=== PATIENT | female | born 1990 | race Caucasian/White ===

== ENCOUNTER 2019-12-12 10:56 | Observation (INO) | payer BC, SELFPAY ==
[2019-12-12 11:20] VITALS: TEMP 37.6; BMI 30.4
[2019-12-12 11:23] VITALS: BP 112/66; PULSE 81
[2019-12-12 12:01] VITALS: BP 104/63; PULSE 77
[2019-12-12] MEDS: FAMOTIDINE 20 MG TABLET PO (12:42)
[2019-12-12 12:45] VITALS: TEMP 37.6
[2019-12-12 13:01] VITALS: BP 104/64; PULSE 79
--- NOTE | 2019-12-12 13:56 | OBADM ---
This patient, Claribel Park, admitted to the OB room OB Post 117 for observation. Patient/family oriented to hospital policies and general routines including ID bracelet, bed and alarms, visiting hours, pain management, procedures, bathroom and other care routines, personal items, smoking policy, room service/diet, and visiting hours. Patient/Family are encouraged to report perceived risks to care and to ask questions if they do not understand what they are told or what they should do.
--- NOTE | 2020-01-05 17:50 | PM.OBTRLD ---
OB - Triage/Final Diagnosis Final Diagnosis (1) Nausea: Code(s): R11.0 - Nausea Status: Acute
== END 2019-12-12 12:52 | disposition home or self-care (01) ==
PROVIDERS: Admitting Provider Obstetrics & Gynecology; PCP Nurse Practitioner Family; Visit Provider Obstetrics & Gynecology
DX: O26.893 Other specified pregnancy related conditions, third trimester (principal); R11.0 Nausea; Z3A.28 28 weeks gestation of pregnancy
CPT/HCPCS: A9270; G0378; G0379

== ENCOUNTER 2019-12-27 08:27 | Observation (INO) | payer BC, SELFPAY ==
[2019-12-27] VITALS (7 sets, daily range): BP systolic 107–115; BP diastolic 60–67; PULSE 83–90; BMI 30.4
[2019-12-27 08:58] LABS: Add Urine Microscopic? NO; Appearance Urine Clear (Clear); Bilirubin Urine Negative (Negative); Blood Urine Negative (Negative); Color Urine Yellow (Yellow); Glucose Urine UA Negative (Negative); Ketones Urine Negative (Negative); Leukocyte Esterase Ur Negative LEU/UL (NEGATIVE); Nitrate Urine Negative (Negative); Protein Urine Negative (Negative); Specific Grav Ur 1.016 (1.001-1.035); Urobilinogen Urine Negative mg/dL (<2.0)
--- NOTE | 2019-12-27 10:58 | OBADM ---
This patient, Claribel Park, admitted to the OB room OB Post 116 for observation. Patient/family oriented to hospital policies and general routines including ID bracelet, bed and alarms, visiting hours, pain management, procedures, bathroom and other care routines, personal items, smoking policy, room service/diet, and visiting hours. Patient/Family are encouraged to report perceived risks to care and to ask questions if they do not understand what they are told or what they should do.
--- NOTE | 2020-01-20 17:15 | PM.OBTRLD ---
OB - Triage/Final Diagnosis Visit Information Date of evaluation: 12/27/19 Evaluation Laboratory results: Laboratory Tests 12/27/19 08:49 Urine Color Yellow Urine Appearance Clear Urine pH 6.0 Ur Specific [place] 1.016 Urine Protein Negative Urine Glucose (UA) Negative Urine Ketones Negative Ur Blood (Man) Negative Urine Nitrate Negative Urine Bilirubin Negative Urine Urobilinogen Negative Ur Leukocyte Esterase Negative Final Diagnosis (1) False labor: Code(s): O47.9 - False labor, unspecified Status: Acute
== END 2019-12-27 10:35 | disposition home or self-care (01) ==
PROVIDERS: Admitting Provider Obstetrics & Gynecology; PCP Nurse Practitioner Family; Visit Provider Obstetrics & Gynecology
DX: O47.03 False labor before 37 completed weeks of gestation, third trimester (principal); Z3A.30 30 weeks gestation of pregnancy
CPT/HCPCS: 81003; 87077; 87086; 87088; 87186; G0378; G0379

== ENCOUNTER 2020-02-25 07:36 | Outpatient (CLI) | payer BC, SELFPAY ==
[2020-02-25 08:12] VITALS: BP 108/74; PULSE 81
== END 2020-02-25 08:30 | disposition home or self-care (01) ==
LOC: ANHOBOP 08:21 → ANHLDR 08:45
PROVIDERS: PCP Nurse Practitioner Family; Visit Provider Obstetrics & Gynecology
DX: O42.12 Full-term premature rupture of membranes, onset of labor more than 24 hours following rupture (principal); Z3A.00 Weeks of gestation of pregnancy not specified
CPT/HCPCS: 59025; 84112; 99199

== ENCOUNTER 2020-03-02 11:50 | Outpatient (CLI) | payer BC, SELFPAY ==
[2020-03-02 12:48] LABS: Hematocrit 35.6 % (37.0-47.0); Mean Corpuscular HGB Conc 33.7 g/dl (32-36); Mean Corpuscular Hemoglobin 31.1 pg (26-34); Mean Corpuscular Volume 92.2 fl (80-100); Mean Platelet Volume 12.3 fl (7.4-10.4); Platelet Count Result 122 k/mm3 (150-375); Red Blood Count 3.86 M/mm3 (4.2-5.4); Red Cell Distribution Width 14.2 % (11.5-14.5); White Blood Count 9.4 K/mm3 (4.5-10.0)
[2020-03-03 07:20] LABS: Rapid Plasma Reagin Non-Reactive (NonReactive)
== END 2020-03-02 11:51 | disposition home or self-care (01) ==
PROVIDERS: PCP Nurse Practitioner Family; Visit Provider Obstetrics & Gynecology
DX: Z01.818 Encounter for other preprocedural examination (principal)
CPT/HCPCS: 36415; 85027; 86592; 86850; 86900; 86901

== ENCOUNTER 2020-03-03 05:56 | Inpatient (IN) | payer BC, SELFPAY ==
[2020-03-03] VITALS (52 sets, daily range): BP systolic 97–120; BP diastolic 52–89; PULSE 56–106; RESP 12–18; TEMP 36.4–37.2; O2SAT 96–100; BMI 32.8
--- NOTE | 2020-03-03 05:56 | LDADM ---
This patient, Claribel Park, was admitted to Labor/Delivery/Recovery 120 on 03/03/20 at 05:56. Plans for labor, pain management and were discussed with patient. Patient/family oriented to hospital policies and general routines including ID bracelet, bed and alarms, visiting hours, pain management, procedures, bathroom and other care routines, personal items, smoking policy, room service/diet and guest tray routines, security routines, and visiting hours. Patient/Family are encouraged to report perceived risks to care and to ask questions if they do not understand what they are told or what they should do. See OBIX for further documentation.
[2020-03-03] MEDS: LACTATED RINGERS 1,000 ML 125 ML IV CONT ×3 (06:36→09:01)
--- NOTE | 2020-03-03 06:50 | WPDANESEPPF ---
Anes - Initial Pre Proc Eval Procedure: Operation Date: 03/03/20 07:30 Proposed Procedures p Repeat Section, Bilateral Tubal Ligation - Sujata Jean Baptiste MD Date/Time: 03/03/20 06:50 Surgeon: Sujata Jean Baptiste MD Pre Op Diagnosis: Induction of Labor Patient Data Age: 29 Gender: F Height: 1.73 m Weight: 98 kg Last Vital Signs Pulse 95 03/03/20 06:31 BP 107/79 03/03/20 06:31 Allergies Allergy/AdvReac Type Severity Reaction Status Date / Time No Known Allergies Allergy Unknown Verified 11/11/19 18:25 Home Medications Medication Instructions Recorded Confirmed Type PNV cmb#95-ferrous fumarate-FA 1 tablet PO DAILY 11/11/19 03/03/20 History [] Patient hx anesthesia problems: none Family hx anesthesia problems: none PMFSH Family History Family History (Updated 02/04/20 @ 13:29 by Sophie Fuenets RN) Sibling FH: kidney failure Social History Social History Smoking status: Never smoker Substance use: never Gender identity (if verbalized by the patient): Female Spiritual care concerns: No Anes - Eval Final PreProcedure Day of Procedure 03/03/20 06:50 Patient weight: overweight Heart: regular rate and rhythm Lungs: clear to auscultation and normal air movement Airway: Mallampati scale class II Neurological: alert and oriented Last oral intake: >/= 8 hours ASA classification: II Emergent: no Anesthetic plan: proceed Anesthesia type and monitoring: regional spinal Informed Consent: The patient's anesthetic plan and its attendant risks and benefits were discussed with the patient/family/POA. Questions were solicited and answers provided to the satisfaction of the patient/family/POA.
[2020-03-03] MEDS: ceFAZolin 2 GM/D5W 50 ML 2 GM/50 ML BAG IVPB (07:21)
--- NOTE | 2020-03-03 07:37 | PM.IMHP ---
H&P: HPI History of Present Illness Chief complaint: Induction of Labor Narrative: Claribel Park is a 29 year old multiparous female at term who has a history of previous delivery. She also has unwanted fertility. We have agreed to perform repeat delivery and a bilateral tubal ligation. She has no complaints. She denies any loss of fluid, vaginal bleeding, contractions. She denies any headache, blurry vision, epigastric pain. She denies any chest pain or shortness of breath Review of Systems Constitutional: Constitutional: Reports no additional constitutional complaints, Denies fatigue, Denies headache(s), Denies lethargy and Denies weakness Eyes: Eyes: Reports no additional eye complaints, Denies blurry vision and Denies photophobia ENT: Reports as per HPI, Denies headache(s) and Denies neck pain Cardiovascular: Cardiovascular: Denies chest pain, Denies diaphoresis, Denies leg edema, Denies palpitations and Denies dyspnea Respiratory: Respiratory: Denies hemoptysis, Denies dyspnea and Denies wheezing Gastrointestinal: Gastrointestinal: Denies abdominal pain, Denies melena, Denies bloating, Denies hematochezia, Denies nausea and Denies vomiting Genitourinary: Genitourinary: Reports no additional female genitourinary complaints Musculoskeletal: Musculoskeletal: Denies joint swelling, Denies neck pain, Denies numbness and Denies stiffness Neurologic: Denies Abnormal speech present, Denies confusion, Denies headache(s), Denies numbness and Denies weakness Psychiatric: Psychiatric: Denies anxiety, Denies confusion, Denies depression, Denies homicidal ideation and Denies suicidal ideation Endocrine: Endocrine: Denies fatigue and Denies palpitations Allergic/Immunologic: Allergic/Immunologic: Denies wheezing [facility] Family History Family History (Updated 02/04/20 @ 13:29 by Sophie Fuentes RN) Sibling FH: kidney failure Social History Social History Smoking status: Never smoker Substance use: never Gender identity (if verbalized by the patient): Female Spiritual care concerns: No Meds Home Medications and Allergies Home Medications Medication Instructions Recorded Confirmed Type PNV cmb#95-ferrous fumarate-FA 1 tablet PO DAILY 11/11/19 03/03/20 History [] Allergies Allergy/AdvReac Type Severity Reaction Status Date / Time No Known Allergies Allergy Unknown Verified 11/11/19 18:25 Vital Signs Vital Signs - 24 hr 03/03/20 06:19 03/03/20 06:31 Pulse Rate 106 H 95 Blood Pressure 114/82 107/79 Exam Const: General: healthy appearing, comfortable and no acute distress; No confusion Orientation/consciousness: No confusion Eyes: Direct Ophthalmoscopy: No photophobia Resp: Auscultation: clear to auscultation bilaterally, no rales, no rhonchi and no wheezes Cardio: Rate: regular rate Heart sounds: no click, no murmurs and no rubs GI: Inspection: non-distended GI Palp: No abdominal tenderness Auscultation: normal bowel sounds Neuro: General: No confusion Speech: No Abnormal speech present Extrem: General: normal to inspection, no pedal edema and no calf tenderness Assessment and Plan Assessment and plan (1) Term : Code(s): Z34.90 - Encounter for supervision of normal , unspecified, unspecified trimester Status: Acute (2) Previous delivery, antepartum condition or complication: Code(s): O34.219 - Maternal care for unspecified type scar from previous delivery Status: Acute (3) Unwanted fertility: Code(s): Z30.09 - Encounter for other general counseling and advice on contraception Status: Acute Assessment and Plan: This patient is a 29-year-old multiparous female at term with previous delivery unwanted fertility. We have agreed to perform delivery. She understands the risks, benefits, and alternatives. She has completed the informed consent p
--- NOTE | 2020-03-03 08:37 | P.OP_ITS ---
Procedure Note - Detailed Date of procedure: 03/03/20 Pre-op diagnosis: Term Gestation, Unwanted Unwanted fertility Post-op diagnosis: same Procedure performed: Repeat low-transverse delivery, tubal ligation Description of procedure: The patient was taken the operating room. She was prepped and draped in the dorsal supine position with leftward tilt after induction of spinal anesthetic. When anesthesia was found to be adequate a low- transverse skin incision was made and carried down to the level the fascia with the knife. The fascial incision was made at the midline with a scalpel. The fa scial incision was extended laterally with Garcia scissors. The fascia was tented upward superior and inferior with Mariah clamps. The rectus muscles were dissected off bluntly. The rectus muscles at the midline. The preperitoneal fat was dissected bluntly at the superior aspect of the separate the rectus muscles. The peritoneal cavity was entered bluntly in the same area. The peritoneal incision was extended superior and inferior with good position of bladder. Bladder blade was inserted. A low-transverse incision was made on the uterus with the scalpel. It was carried down the level of the amniotic cavity with a knife. The amniotic cavity bluntly. The uterine incision was made laterally with blunt traction. The infant was delivered. The cord was clamped and cut. The was handed off to waiting pediatric staff. Cord bloods were obtained. The placenta was removed manually. The uterus was exteriorized. Uterus cleared of all clots and debris. Uterus closed in 0 Vicryl in a running locked fashion. An imbricating layer of 0 Vicryl was also placed on the to bolster the closure. Fallopian tube was grasped in the ampullary region with a [place]. It was raised away from the accompanying vein. A window was created in the broad ligament in this area of the tube. 0 Vicryl was used to ligate the proximal distal ends of the skeletonize region of the tube. The segment of the tube was resected with scissors. The cut surfaces were cauterized. On the contralateral side the procedure was performed identically. The uterus was returned to the abdomen. The gutters were cleared of all clots and debris. The fascia was closed 0 Vicryl in a running fashion. Subcutaneous tissue was irrigated and bleeding areas were cauterized. The skin was closed with subcuticular absorbable wan. The incision was covered with derma davis. The patient tolerated the procedure well. She was taken recovery room stable condition. Sponge, lap, needle counts were correct x2. Anesthesia: spinal Surgeon: Sujata Jean Baptiste MD Estimated blood loss (mL): 230 Drains: No Packing: No Pathology: none sent Complications: No immediate complications Condition: stable Disposition: floor Findings: Normal maternal anatomy. Average size with normal Apgars.
[2020-03-03] MEDS: OXYTOCIN 30 UNITS/NS 500 ML 30 UNITS/500 ML BAG 125 UNITS IV CONT (09:50)
[2020-03-03] MEDS: LORATADINE 10 MG TABLET PO (11:17)
--- NOTE | 2020-03-03 12:05 | PC.NURSE ---
Consulted with patient, mother called for assist with latch. Mother is attempting with no successful latch. Both nipples have blistering from shallow latch. Mother reports she used a nipple shield with first child and then mostly pumped and bottle feed. Mother has flat firm nipples. Offered and explained the nipple shield. Discussed nipple shield precautions,possible complications, need to initiate pumping to stimulate milk supply. Instructions given on application and cleaning of shield. Patient verbalizes understanding. Reviewed feeding cues, frequencies/durations of feeding, milk production, feeding/elimination flow sheet and signs of adequate intake. Demonstrated stimulation techniques to wake for feeding. Assisted with to breast. Reviewed positioning/alignment in cross cradle, holding breast in U hold and guided asymmetrical latch on. Discussed rational for each. was able to latch correctly with shield in place. nursed eagerly, with steady draws and occasional swallowing noted . Reviewed signs of a correct latch, effective nursing and suck swallow ratio. Both are able to maintain latch without discomfort to mother. Instructed mother to call out for RN assistance if she is unable to latch for feeding or she has discomfort with nursing. Instructed feeding should be initiated three hours from start of last feeding or if feeding cues are noted before. Mother voiced understanding of information shared.
[2020-03-03] MEDS: IBUPROFEN 600 MG TABLET PO ×2 (13:57→21:31)
[2020-03-03] MEDS: DEXTROSE 5%/0.45% SOD CHL 1,000 ML 125 ML IV CONT (14:15)
--- NOTE | 2020-03-03 16:41 | PC.NURSE ---
1122-Patient transferred to post room #287 via stretcher. Support person present. Oriented to unit, room, information board, rooming in, admission packet and security measures. Patient verbalizes understanding.
[2020-03-03] MEDS: DOCUSATE SODIUM 100 MG CAPSULE PO (17:32)
[2020-03-03] MEDS: SIMETHICONE 80 MG TAB.CHEW PO (21:31)
[2020-03-04] VITALS: BP 94/56; PULSE 81; PULSE 82; RESP 14; RESP 18; O2SAT 97; O2SAT 98
[2020-03-04] MEDS: SIMETHICONE 80 MG TAB.CHEW PO ×3 (04:54→21:47)
[2020-03-04] MEDS: IBUPROFEN 600 MG TABLET PO ×3 (04:54→21:46)
[2020-03-04 05:00] VITALS: BP 93/52; PULSE 82; RESP 14; RESP 18; TEMP 37; O2SAT 96; O2SAT 98
[2020-03-04 05:39] LABS: Basophils Percent Auto 0.2 % (0.2-1.2); Eosinophils Absolute Auto 0.1 K/mm3 (0-0.3); Eosinophils Percent Auto 0.5 % (0-4.4); Hematocrit 34.3 % (37.0-47.0); Hemoglobin 11.3 g/dL (12.0-15.0); Immature Granulocyte Absolute 0.18 K/mm3 (0.00-0.031); Immature Granulocyte Percent A 1.4 % (0-0.5); Lymphocytes Percent Auto 10.3 % (18.3-44.2); Mean Corpuscular HGB Conc 32.9 g/dl (32-36); Mean Corpuscular Hemoglobin 30.8 pg (26-34); Mean Corpuscular Volume 93.5 fl (80-100); Mean Platelet Volume 12.3 fl (7.4-10.4); Monocytes Absolute Auto 0.7 K/mm3 (0.1-0.6); Monocytes Percent Auto 5.9 % (2.6-8.5); Neutrophils Absolute Auto 10.3 K/mm3 (1.3-6.7); Neutrophils Percent Auto 81.7 % (45.5-73.1); Platelet Count Result 101 k/mm3 (150-375); Red Blood Count 3.67 M/mm3 (4.2-5.4); Red Cell Distribution Width 14.4 % (11.5-14.5); White Blood Count 12.6 K/mm3 (4.5-10.0)
[2020-03-04] MEDS: MULTIVIT/MIN/PREN/FOL AC/IRON TABLET 1 TAB PO (08:03)
[2020-03-04] MEDS: DOCUSATE SODIUM 100 MG CAPSULE PO ×2 (08:03→15:29)
--- NOTE | 2020-03-04 09:55 | PM.OBPNVD ---
OB - PN: Subj Subjective Date/time seen: 03/04/20 09:55 OB - PN: Obj Data Labs CBC & Chem 7: 03/04/20 05:01 Labs: Laboratory Results - last 24 hr 03/04/20 05:01 WBC 12.6 H RBC 3.67 L Hgb 11.3 L Hct 34.3 L MCV 93.5 MCH 30.8 MCHC 32.9 RDW 14.4 Plt Count 101 L MPV 12.3 H Immature Gran % (Auto) 1.4 H Neut % (Auto) 81.7 H Lymph % (Auto) 10.3 L [place] % (Auto) 5.9 Eos % (Auto) 0.5 Baso % (Auto) 0.2 Lymph # (Auto) 1.30 [place] # (Auto) 0.7 H Eos # (Auto) 0.1 Baso # (Auto) 0.0 Abs Immat Gran (auto) 0.18 H Absolute Neuts (auto) 10.3 H Absolute Nucleated RBC 0.0 Nucleated RBC % 0.0 OB - PN A/P Plan day: 1 Plan: routine care Time Spent With Patient Time: Total time spent is greater than 50% in coordination of care (as documented) at patient's floor/unit and/or counseling patient: Time with patient: less than 15 minutes Review of Systems Review of Systems: All systems reviewed & are unremarkable except as noted in HPI and below Exam Narrative: Exam Narrative: Lower ext normal. No redness, warmth, or tenderness. Negative homans sign. Const: General: comfortable Chest: Breast/axilla inspection: normal inspection of the breasts Resp: Effort & Inspection: normal respiratory effort GI: Auscultation: normal bowel sounds Psych: Appearance: grossly normal Affect: normal affect Attitude: cooperative Judgement: Good judgement present (Psych)
[2020-03-04 10:25] VITALS: BP 100/59; PULSE 81; RESP 18; TEMP 36.7; O2SAT 99
[2020-03-04] MEDS: ACETAMINOPHEN 325 MG TABLET 650 MG PO ×2 (15:29→21:47)
--- NOTE | 2020-03-04 17:37 | WPDANLDPN2 ---
Anes-Prog Note L&D Date/Time: 03/04/20 17:37 Comfortable throughout: section Neuraxial method: spinal Epidural/Spinal procedure site: clean & non-tender Neuro status: Neuro function grossly intact. Cardiovascular status: normal Respiratory status: normal Airway patency: baseline Mental status: baseline Post-Op hydration status: normal Vital Signs: Last Vital Signs Temp 36.7 C 03/04/20 10:25 Pulse 81 03/04/20 10:25 Resp 18 03/04/20 10:25 BP 100/59 L 03/04/20 10:25 Pulse Ox 99 03/04/20 10:25 I/O: Intake & Output 03/04/20 03/04/20 03/04/20 07:59 15:59 23:59 Intake Total 700 240 Output Total 2300 650 Balance -1600 -410 Post-procedural complaints: none Patient feedback: Patient satisfied with anesthetic care.
--- NOTE | 2020-03-04 17:38 | WPDANLDNPN2 ---
Anes-Prog Note L&D-Neuraxial Date/Time: 03/04/20 17:38 Neuraxial medications: intrathecal PF morphine Opiod-related complaints: none Patient feedback: Patient satisfied with post-operative pain management.
[2020-03-04 19:40] VITALS: BP 99/62; PULSE 93; RESP 16; TEMP 36.3
[2020-03-05 08:00] VITALS: BP 112/70; PULSE 93; RESP 18; TEMP 37.1
[2020-03-05] MEDS: DOCUSATE SODIUM 100 MG CAPSULE PO (08:09)
[2020-03-05] MEDS: MULTIVIT/MIN/PREN/FOL AC/IRON TABLET 1 TAB PO (08:09)
[2020-03-05] MEDS: ACETAMINOPHEN 325 MG TABLET 650 MG PO (08:09)
[2020-03-05] MEDS: IBUPROFEN 600 MG TABLET PO (08:09)
--- NOTE | 2020-03-05 09:13 | P.PNOB_ITS ---
OB - PN: Subj Subjective Date/time seen: 03/05/20 09:13 OB - PN: Obj Data Labs CBC & Chem 7: 03/04/20 05:01 OB - PN A/P Plan day: 2 Plan: routine care, discharge home and other (RTC in 1 week for post op.) Time Spent With Patient Time: Total time spent is greater than 50% in coordination of care (as docume nted) at patient's floor/unit and/or counseling patient: Review of Systems Review of Systems: All systems reviewed & are unremarkable except as noted in HPI and below Exam Narrative: Exam Narrative: Fundus firm. [place]ison dry and intact. Minimal edema in legs. No warmth, redness, tenderness in calfs. Negative homans. Const: General: comfortable Chest: Breast/axilla inspection: normal inspection of the breasts Resp: Effort & Inspection: normal respiratory effort Cardio: Rate: regular rate GI: Auscultation: normal bowel sounds Psych: Appearance: grossly normal Affect: normal affect Attitude: cooperative Judgement: Good judgement present (Psych)
[2020-03-05 09:16] LABS: Hematocrit 34.7 % (37.0-47.0); Hemoglobin 11.7 g/dL (12.0-15.0); Immature Platelet Fraction Pct 9.2 % (0.9-11.2); Mean Corpuscular HGB Conc 33.7 g/dl (32-36); Mean Corpuscular Hemoglobin 31.6 pg (26-34); Mean Corpuscular Volume 93.8 fl (80-100); Mean Platelet Volume 11.8 fl (7.4-10.4); Platelet Count Result 129 k/mm3 (150-375); Red Cell Distribution Width 14.5 % (11.5-14.5); White Blood Count 12.3 K/mm3 (4.5-10.0)
[2020-03-07 15:41] VITALS: BP 115/75; PULSE 84; RESP 20; TEMP 36.6; O2SAT 100
--- NOTE | 2020-03-24 07:47 | PM.OBDSVD ---
DS: Admitting Diagnosis Admitting Diagnosis Admitting Diagnosis: Encounter for supervision of normal , unspecified, unspecified trimester DS: Discharge Diagnosis Discharge Diagnosis (1) Previous delivery, antepartum condition or complication: Code(s): O34.219 - Maternal care for unspecified type scar from previous delivery Status: Acute (2) Unwanted fertility: Code(s): Z30.09 - Encounter for other general counseling and advice on contraception Status: Acute OB - DS: Summary OB Procedures : None OB Procedures Intrapartum: and Tubal ligation OB Procedures: : None Peripartum Data Delivery Method: Section Laceration description: None Procedures: Procedures Operation Date: 03/03/20 07:30 Actual Procedures Side Surgeon p Section Not Applicable Sujata Jean Baptiste MD Status at Discharge Functional status at discharge: independent ambulation Time Spent with Patient Time attestation: Total time spent providing and/or coordinating discharge services: DS: Data Data Completed and Pending Completed studies during hospitalization: Pending at discharge 03/03/20 08:55 Surgical [PTH] Routine Discharge Plan Discharge Attending physician on discharge: Sujata Jean Baptiste Consulting providers: Mikie Park ; Brittany Irene Discharging Clinician: Brittany Irene Patient Disposition: Home, Self-Care Activity: pelvic rest Diet: as tolerated Wound Care Instructions: follow printed instructions and incision open to air Discharge Instructions: Education: Mom and Baby Guide Given to: Mother Follow-Up: Call your delivering provider's office for an appointment to be seen. Mom and baby should come to the [facility] for the follow-up appointment. Appointment Date/Time: March 07, 2020 at 3:30 p.m. What to expect at your follow-up visit: Physical Assessment Call [phone] if you are unable to keep your appointment time. BREAST CARE: 1. Wear a snug supportive bra. 2. For engorgement discomfort: Breast Feeding: A. Apply warm moist washcloths B. Express milk as needed to relieve engorgement C. Wear loose clothing Bottle Feeding: A. May apply ice packs 3. For sore nipples: A. Identify correct latch-on B. Apply warm moist washcloths before and after nursing C. Air dry nipples after nursing D. May apply Lansinoh cream to nipples ABDOMINAL INCISION: 1. Allow incision to air dry 2. Do NOT use lotions for powders on your incision 3. When showering, allow soap and water to run over the incision, but do not wash incision PERINEAL CARE: 1. Until bleeding stops, use your ari bottle after urinating 2. Change your pad frequently throughout the day 3. No tub baths until seen by your physician - You may shower ACTIVITY: 1. Rest as much as possible. 2. Do not exercise or lift anything heavier than your baby (such as laundry or other children.) 3. Avoid stairs or driving as much as possible. 4. Do not put anything into the vagina. No douching, tampons, or sexual activity until seen by physician. NOTIFY PHYSICIAN IF YOU HAVE ANY QUESTIONS OR IF ANY OF THE FOLLOWING SYMPTOMS OCCUR: 1. If your incision becomes red, swollen, or more painful than what you have experienced in the hospital. 2. If your vaginal bleeding becomes foul smelling. 3. If your vaginal bleeding becomes more heavy than a period or if your bleeding changes from pink to bright red. However, you may pass an occasional walnut-sized clot once or twice for the first week . 4. If you experience a sharp, shooting pain in you calves. 5. If you discover a hard, reddened area on your breast or if you experience flu-like symptoms. DIET: 1. Eat regular, well-balanced meals. 2. Drink plenty of fluids daily. Stand Alone Forms: General Discharge Information Fo
== END 2020-03-05 12:44 | disposition home or self-care (01) | DRG 785 ==
LOC: ANHLDR 08:38 → ANHOB2 11:33
PROVIDERS: Advanced Practice Midwife; Admitting Provider Obstetrics & Gynecology; PCP Nurse Practitioner Family; Visit Provider Obstetrics & Gynecology
PROC: 10D00Z1 Extraction of Products of Conception, Low, Open Approach (ICD-10-PCS; CPT 59514; principal; 2020-03-03 07:30)
DX: O34.211 Maternal care for low transverse scar from previous cesarean delivery (principal); Z30.2 Encounter for sterilization; Z3A.39 39 weeks gestation of pregnancy; Z37.0 Single live birth
CPT/HCPCS: 36415; 85025; 85027; 85055; 86592; 86850; 86900; 86901; 88302; A9270; J0131; J0690; J2274; J2405; J2590; J2704; J7120

== ENCOUNTER 2020-03-12 22:37 | Emergency (ER) | payer BC, SELFPAY ==
--- NOTE | ~2020-03-12 | CT_ITS ---
EXAMINATION: CT abdomen pelvis w con DATE: 03/12/2020 23:57 INDICATION: Right-sided abdominal pain. TECHNIQUE: Computed tomography (CT) of the abdomen and pelvis was performed with 100 mL Omnipaque 350 intravenous contrast. Automated exposure control and iterative reconstruction technique were employe d. The dose-length product was 788.25 mGy-cm. COMPARISON: CT abdomen and pelvis 01/31/2019 FINDINGS: The visualized portions of the lung bases demonstrate mild atelectasis. No pleural effusion . The heart size is normal. No pericardial effusion. The liver, gallbladder, spleen, pancreas, adrena l glands, and left kidney are normal. There is mild right hydronephrosis and hydroureter. There are n o dilated loops of bowel. The appendix is normal. The uterus is enlarged, consistent with recent preg mundo. The left side of the uterine fundus enhances less than the right, which is nonspecific and may be normal. The endometrial complex measures 8 mm in thickness, which is normal. There is trace pelvi c ascites. There is an open Pfannenstiel incision. A 12 mm fluid collection is noted at the left side of the incision. The bones are unremarkable. IMPRESSION: 1. Mild right hydronephrosis and hydroureter, likely secondary to the enlarged uterus. 2. Open Pfannenstiel incision with 12 mm fluid collection at the left side of the incision. Reviewed, dictated and finalized at location A. IMPRESSION: 1. Mild right hydronephrosis and hydroureter, likely secondary to the enlarged uterus. 2. Open Pfannenstiel incision with 12 mm fluid collection at the left side of t he incision.
[2020-03-12 22:40] VITALS: BP 142/96; PULSE 66; RESP 20; TEMP 36.6; O2SAT 100
--- NOTE | 2020-03-12 22:59 | ED.ABDPAIN ---
HPI - Abdominal Pain General Chief Complaint: Abdominal Pain Stated Complaint: ABD PAIN Time Seen by Provider: 03/12/20 22:59 Source: patient and family Mode of arrival: ambulatory Limitations: no limitations History of Present Illness HPI narrative: Patient is a G2, P2, recent section on January 02 at this facility who presents for evaluation of worsening abdominal pain. Patient reports she was seen by Dr. Jean Baptiste office for pain, drainage from her site, Dr. Jean Baptiste open the wound, packed it, and patient was prescribed antibiotics yesterday although she has not filled her prescription. Patient took 1 [place] for pain earlier this evening with minimal improvement. She reports dull, aching pain over the section site. No purulent drainage, redness, fever or chills. No nausea or vomiting. Patient reports a mild amount of vaginal bleeding which has been somewhat constant and lessening since her delivery date. Patient denies any chest pain or shortness of breath. No sick contacts at home. No flank pain. No malodorous vaginal discharge. Related Data Home Medications Medication Instructions Recorded Confirmed PNV cmb#95-ferrous fumarate-FA 1 tablet PO DAILY 11/11/19 03/03/20 [] Allergies Allergy/AdvReac Type Severity Reaction Status Date / Time No Known Allergies Allergy Unknown Verified 03/12/20 22:48 Review of Systems Review of Systems: Narrative: CONSTITUTIONAL: Denies fever, chills, or sweats. CARDIOVASCULAR: Denies chest pain, palpitations, or edema. RESPIRATORY: Denies cough or dyspnea. GASTROINTESTINAL: Reports lower abdominal pain, right-sided abdominal pain, denies nausea, vomiting or diarrhea GENITOURINARY: Denies dysuria or hematuria. SKIN: Denies rash or itching. MUSCULOSKELETAL: Denies back pain, joint pain, or myalgia. NEUROLOGIC: Denies headache, numbness, or weakness. [facility] Past Medical History Medical History (Updated 03/13/20 @ 00:53 by Carmen Cortes MD) False labor Nausea Term Surgical History Surgical History (Updated 03/12/20 @ 23:35 by Carmen Cortes MD) Previous delivery, antepartum condition or complication Family History Family History Sibling FH: kidney failure Social History Social History Smoking status: Never smoker Substance use: never Gender identity (if verbalized by the patient): Female Spiritual care concerns: No Exam Narrative: Exam Narrative: GENERAL: Awake, alert, conversant, tearful HEAD: Normocephalic, atraumatic. EYES: PERRLA and EOMI. ENT: Nares clear, no rhinorrhea or epistaxis. Mucous membranes moist. NECK: Supple. CHEST: No respiratory distress, breathing even and non labored HEART: Regular rate, sinus rhythm ABDOMEN:Non distended, section scar open with packing, packing removed, no purulent drainage, no malodorous discharge, no areas of skin breakdown or active bleeding. No tracking wounds present. Tenderness to palpation. EXTREMITIES: Normal range of motion. No edema. SKIN: Warm, dry, no rash. NEURO:No focal deficits. Alert and oriented x3 Course Vital Signs Vital signs: Vital Signs Temperature 36.6 C 03/12/20 22:40 Pulse Rate 66 03/12/20 22:40 Respiratory Rate 20 03/12/20 22:40 Blood Pressure 142/96 H 03/12/20 22:40 Pulse Oximetry 100 03/12/20 22:40 Temperature 36.6 C 03/12/20 22:40 Pulse Rate 60 03/13/20 00:27 Respiratory Rate 20 03/13/20 00:27 Blood Pressure 113/74 03/13/20 00:27 Pulse Oximetry 100 03/13/20 00:27 MDM - Abdominal Pain MDM Narrative Medical decision making narrative: Patient presented to the emergency department for evaluation of abdominal pain at the site of her incision from section. At the time of assessment, ABCs are intact and vital signs are stable. Physical exam is notable for tenderness karina
[2020-03-12 23:05] LABS: Basophils Absolute Auto 0.1 K/mm3 (0.0-0.1); Basophils Percent Auto 0.6 % (0.2-1.2); Eosinophils Absolute Auto 0.2 K/mm3 (0-0.3); Eosinophils Percent Auto 2.4 % (0-4.4); Hematocrit 42.8 % (37.0-47.0); Hemoglobin 13.8 g/dL (12.0-15.0); Immature Granulocyte Absolute 0.15 K/mm3 (0.00-0.031); Immature Granulocyte Percent A 1.6 % (0-0.5); Lymphocytes Absolute Auto 3.11 K/mm3 (0.9-3.2); Lymphocytes Percent Auto 32.7 % (18.3-44.2); Mean Corpuscular HGB Conc 32.2 g/dl (32-36); Mean Corpuscular Hemoglobin 30.8 pg (26-34); Mean Corpuscular Volume 95.5 fl (80-100); Mean Platelet Volume 11.3 fl (7.4-10.4); Monocytes Absolute Auto 0.6 K/mm3 (0.1-0.6); Monocytes Percent Auto 5.9 % (2.6-8.5); Neutrophils Absolute Auto 5.4 K/mm3 (1.3-6.7); Neutrophils Percent Auto 56.8 % (45.5-73.1); Platelet Count Result 248 k/mm3 (150-375); Red Blood Count 4.48 M/mm3 (4.2-5.4); Red Cell Distribution Width 13.4 % (11.5-14.5); White Blood Count 9.5 K/mm3 (4.5-10.0)
[2020-03-12 23:17] LABS: Lactic Acid Reflex 0.9 mmol/L (0.7-2.1)
[2020-03-12 23:18] LABS: Alanine Aminotransferase 22 U/L (4-35); Albumin Level 3.8 g/dL (3.5-5.1); Alkaline Phosphatase 139 U/L (38-126); Aspartate Amino Transferase 26 U/L (14-36); Bilirubin,Total 0.2 mg/dL (0.2-1.3); Blood Urea Nitrogen 14 mg/dL (7-17); Calcium 9.2 mg/dL (8.4-10.2); Carbon Dioxide 28 mmol/L (22-30); Chloride 104 mmol/L (98-107); Estimated Glomerular Filt Rate > 60; Glucose 87 mg/dL (65-105); Lipase 68 U/L (23-300); Potassium 4.1 mmol/L (3.4-5.0); Sodium 138 mmol/L (137-145)
[2020-03-12 23:18] LABS: Add Urine Microscopic? YES; Appearance Urine Clear (Clear); Bilirubin Urine Negative (Negative); Blood Urine 2+ (Negative); Color Urine Yellow (Yellow); Glucose Urine UA Negative (Negative); Ketones Urine Negative (Negative); Leukocyte Esterase Ur Negative LEU/UL (Negative); Mucus Urine Rare /lpf; Nitrate Urine Negative (Negative); Protein Urine Negative (Negative); Specific Grav Ur 1.018 (1.001-1.035); Squamous Epithelial Cell Urine Rare /hpf (Few); Urobilinogen Urine Negative mg/dL (<2.0)
[2020-03-12 23:38] VITALS: BP 101/67; PULSE 60; RESP 20; O2SAT 99
--- NOTE | 2020-03-12 23:39 | PC.NURSE ---
called lab to addon orders at this time.
[2020-03-12 23:50] LABS: CRP 4.2 mg/dL (<1.0)
[2020-03-12] MEDS: ONDANSETRON INJ 4 MG/2 ML VIAL IV PUSH (23:59)
[2020-03-13] MEDS: MORPHINE SULFATE 4 MG/ML INJ IV PUSH
[2020-03-13] MEDS: SODIUM CHLORIDE 0.9% IV 1,000 ML 999 ML IV CONT (00:01)
[2020-03-13 00:04] LABS: Erythrocyte Sedimentation Rate 94 mm/hr (0-20)
[2020-03-13 00:27] VITALS: BP 113/74; PULSE 60; RESP 20; O2SAT 100
[2020-03-13 01:01] VITALS: BP 112/79; PULSE 60; RESP 20; O2SAT 100
== END 2020-03-13 01:06 | disposition home or self-care (01) ==
PROVIDERS: Emergency Provider Emergency Medicine; PCP Nurse Practitioner Family
DX: O90.89 Other complications of the puerperium, not elsewhere classified (principal); G89.18 Other acute postprocedural pain; R10.30 Lower abdominal pain, unspecified
CPT/HCPCS: 36415; 74177; 80053; 81001; 83605; 83690; 85025; 85652; 86140; 87040; 96361; 96374; 96375; 99284; J2270; J2405; J7030; Q9967

== ENCOUNTER 2020-04-15 01:33 | Outpatient (CLI) | payer BC, SELFPAY ==
[2020-04-15 16:42] LABS: SARS-CoV-2 RNA PCR Negative
== END 2020-04-15 01:34 | disposition home or self-care (01) ==
LOC: ANHCOVIDDT 01:33
PROVIDERS: PCP Nurse Practitioner Family; Visit Provider Obstetrics & Gynecology
DX: Z20.828 Contact with and (suspected) exposure to other viral communicable diseases (principal); Z01.812 Encounter for preprocedural laboratory examination
CPT/HCPCS: 87635; C9803; U0003

== ENCOUNTER 2020-04-18 01:18 | Day surgery (SDC) | payer BC, SELFPAY ==
[2020-04-13 13:16] VITALS: BMI 31.4
[2020-04-18] VITALS (8 sets, daily range): BP systolic 97–119; BP diastolic 55–69; PULSE 53–74; RESP 12–18; TEMP 36.3–37.1; O2SAT 97–100; BMI 31.6
[2020-04-18] MEDS: LACTATED RINGERS 1,000 ML 30 ML IV CONT ×2 (08:45→10:42)
--- NOTE | 2020-04-18 09:17 | WPDANESEPPF ---
Anes - Initial Pre Proc Eval Procedure: Operation Date: 04/18/20 10:30 Proposed Procedures p Revision Of Section Scar - Sujata Jean Baptiste MD Date/Time: 04/18/20 09:17 Surgeon: Sujata Jean Baptiste MD Pre Op Diagnosis: Complications of Surgical Wound Patient Data Age: 30 Gender: F Height: 1.73 m Weight: 94.3 kg Allergies Allergy/AdvReac Type Severity Reaction Status Date / Time No Known Allergies Allergy Unknown Verified 04/18/20 08:33 Home Medications Medication Instructions Recorded Confirmed Type No Home Medications 04/13/20 04/18/20 History Patient hx anesthesia problems: none Family hx anesthesia problems: none [facility] Past Medical History Medical History (Updated 03/14/20 @ 00:00 by Juan Lagunas) False labor Nausea Term Surgical History Surgical History (Updated 03/12/20 @ 23:35 by Carmen Cortes MD) Previous delivery, antepartum condition or complication Social History Social History Smoking status: Never smoker Substance use: never Gender identity (if verbalized by the patient): Female Spiritual care concerns: No Anes - Eval Final PreProcedure Day of Procedure 04/18/20 09:17 Patient weight: obese Heart: regular rate and rhythm Lungs: clear to auscultation and normal air movement Airway: Mallampati scale class II Neurological: alert and oriented Last oral intake: >/= 8 hours ASA classification: II Emergent: no Anesthetic plan: proceed Anesthesia type and monitoring: general ETT and standard monitoring Informed Consent: The patient's anesthetic plan and its attendant risks and benefits were discussed with the patient/family/POA. Questions were solicited and answers provided to the satisfaction of the patient/family/POA.
--- NOTE | 2020-04-18 09:28 | WPDHPUPDATE1 ---
History and Physical Update Update Date/Time: 04/18/20 09:28 History and Physical has been reviewed, including an updated exam of the patient. There are NO changes in the patient's condition. Risks, benefits, and alternatives have been discussed and questions answered. Patient agrees to proceed with procedure.
[2020-04-18] MEDS: ceFAZolin 2 GM/D5W 50 ML 2 GM/50 ML BAG IVPB (09:56)
--- NOTE | 2020-04-18 10:49 | P.OP_ITS ---
Procedure Note - Detailed Date of procedure: 04/18/20 Pre-op diagnosis: Complications of Surgical Wound Post-op diagnosis: same Procedure performed: Revision low-transverse skin incision and subcutaneous tissue. Description of procedure: The patient is 58 operating room. She was prepped draped in the dorsal supine position after induction of mac anesthesia. A scalpel was used to make an along elliptical incision over 2/3 of the low- transverse incision site. The ovoid incision fully resected the granulation tissue and scar tissue of the right lateral aspect of the wound. Subcutaneous tissue was irrigated. Pinpoint bleeders were cauterized. There was marked blood flow to the skin. The skin was closed with subcuticular 4 Monocryl. It was covered with Dermabond. The patient tolerated the procedure well. Anesthesia: MAC Surgeon: Sujata Jean Baptiste MD Estimated blood loss (mL): 50 Drains: No Packing: No Pathology: yes Complications: No immediate complications Condition: stable Disposition: PACU Findings: 5 x 1 cm strip of granulation tissue on the lateral aspect of the low- transverse abdominal incision, scarring in the subcutaneous tissue. Marked blood flow to this skin and subcutaneous tissue.
--- NOTE | 2020-04-18 12:41 | SUR.PHASEII ---
1240- iv discontinued intact. ambulated to bathroom with steady gait. family member notified and will be here soon. pt getting dressed.
== END 2020-04-18 12:55 | disposition home or self-care (01) ==
PROVIDERS: PCP Nurse Practitioner Family; Visit Provider Obstetrics & Gynecology
PROC: 0UT94ZZ Resection of Uterus, Percutaneous Endoscopic Approach (ICD-10-PCS; CPT 13101; principal; 2020-04-18 10:30)
DX: O34.211 Maternal care for low transverse scar from previous cesarean delivery (principal); L90.5 Scar conditions and fibrosis of skin; L91.0 Hypertrophic scar
CPT/HCPCS: 13101; 87635; 88302; 88305; A9270; C9803; J0690; J1100; J2250; J2405; J2704; J3010; J7120; U0003

== ENCOUNTER 2021-08-07 11:00 | Emergency (ER) | payer BC, SELFPAY ==
--- NOTE | 2021-08-07 11:10 | ED.SKABFB ---
HPI - Skin/Abscess/Foreign Bdy General Chief complaint: Skin/Abscess/Foreign Body Stated complaint: rash Time Seen by Provider: 08/07/21 11:18 Source: patient, RN notes reviewed and old records reviewed Mode of arrival: ambulatory Limitations: no limitations History of Present Illness HPI narrative: 31-year-old female who presents to [facility] with complaints of rash to her face for the past month with increase for the past 1 week that is extremely itchy. Patient states that she saw her PCP and was given RX for triamcinolone cream and has been using this with no improvement. Patient has some pustules around right side of mouth and red inflamed itching skin on cheek and to right forehead with some new spots of red raised inflamed skin on left cheek and on underside of chin region. Patient doesn't know if could be related to constant wearing of mask at work or if from some skin product. Patient states that she did apply some new facial moisturizer about a month ago that had some retinol in it, no other new medications, soaps, foods, or laundry products. MD complaint: rash Related Data Home Medications Medication Instructions Recorded Confirmed escitalopram oxalate mg 08/07/21 triamcinolone acetonide applic TOPICAL 08/07/21 Allergies Allergy/AdvReac Type Severity Reaction Status Date / Time No Known Allergies Allergy Unknown Verified 04/18/20 08:33 Review of Systems Review of Systems: CONSTITUTIONAL: Denies fever, chills, or sweats. EYES: Denies visual changes, redness, or discharge. ENT: Denies rhinorrhea, congestion, sore throat, or otalgia. CARDIOVASCULAR: Denies chest pain, palpitations, or edema. RESPIRATORY: Denies cough or dyspnea. GASTROINTESTINAL: Denies abdominal pain, nausea, vomiting, or diarrhea. GENITOURINARY: Denies dysuria or hematuria. SKIN: Positive for rash to bilateral facial are with itching. MUSCULOSKELETAL: Denies back pain, joint pain, or myalgia. NEUROLOGIC: Denies headache, numbness, or weakness. PSYCHIATRIC: Denies anxiety or depression. All systems reviewed & are unremarkable except as noted in HPI and below PMFSH Past Medical History Medical History False labor Nausea Term Surgical History Surgical History Previous delivery, antepartum condition or complication Family History Family History (Updated 08/07/21 @ 11:32 by Carmen Henderson NP) Sibling FH: kidney failure Polycystic kidney disease Mother Hypertension Social History Social History Smoking status: Never smoker Substance use: never Gender identity (if verbalized by the patient): Female Spiritual care concerns: No Comments At time of signature, agree with nursing past medical, surgical, social and family history. There is no relevant family history pertinent to the presenting complaint Exam Narrative: GENERAL: Well-appearing, well-nourished, and in no acute distress. HEAD: Normocephalic, atraumatic. EYES: PERRLA and EOMI. ENT: Nares clear, no rhinorrhea or epistaxis. Mucous membranes moist.TM's normal with good light reflex, throat pink with no swelling redness or exudates, tonsil not enlarged NECK: Supple.no lymphadenopathy CHEST: Clear to auscultation. No respiratory distress.SAO2 100% on room air HEART: Regular rate and rhythm. No murmur heard. Normal peripheral pulses. ABDOMEN: Soft, nontender, nondistended, normal active bowel sounds. EXTREMITIES: Normal range of motion. No edema. SKIN: Warm, dry, red raised blotchy rash to right side of face, forehead with pustular formation at right side of mouth with new areas of red excoriated patches on left cheek and under chin, no drainage is very pruritic, has been applying triamcinolone ointment that PCP applied with no improvement. NEURO: No focal deficits. Alert and oriented x3.
[2021-08-07 11:12] VITALS: BP 108/58; PULSE 55; RESP 16; TEMP 36.2; O2SAT 100
== END 2021-08-07 11:41 | disposition home or self-care (01) ==
PROVIDERS: Emergency Provider Registered Nurse; PCP Nurse Practitioner Family
DX: L25.9 Unspecified contact dermatitis, unspecified cause (principal)
CPT/HCPCS: 99213; G0463

== ENCOUNTER 2022-02-09 13:04 | Emergency (ER) | payer BC, SELFPAY ==
--- NOTE | ~2022-02-09 | XR_ITS ---
EXAMINATION: XR chest 2V Exam Date/Time: 02/09/2022 13:58 CDT CLINICAL HISTORY: COUGH, CONGESTION x 3 wks; non smoker Comparison: None available RESULT: Lines, tubes, and devices: None. Lungs and pleura: Subtle, subsegmental patchy opacities in the mid and lower lungs. Cardiomediastinal silhouette: Normal cardiomediastinal silhouette. Other: No acute osseous or upper abdominal finding. IMPRESSION: Pulmonary findings may reflect atypical/viral pneumonia in the appropriate clinical context. Reviewed, dictated and finalized at location K. IMPRESSION: Pulmonary findings may reflect atypical/viral pneumonia in the appropriate clin ical context.
[2022-02-09 13:34] VITALS: BP 114/68; PULSE 66; RESP 12; TEMP 36.4; O2SAT 99
--- NOTE | 2022-02-09 13:58 | ED.GENADULT ---
HPI - General Adult General Chief complaint: Ear Stated complaint: SINUS CONGESTION Source: patient Mode of arrival: ambulatory Limitations: no limitations History of Present Illness HPI narrative: Patient presents for evaluation of respiratory symptoms for the past three weeks. She states that she has a hx of environmental allergies and states she thought her symptoms were related to this. However, symptoms have persisted despite mucinex and other OTC therapies. She reports thick brown drainage from her nares, and also in her sputum with coughing. She has some bilateral ear pain, sore throat, and nausea. She denies any fever, chills, vomiting, diarrhea. Her sons have a cough also. She has not received a flu shot. She has received her COVID vaccination Related Data Home Medications Medication Instructions Recorded Confirmed escitalopram oxalate 10 mg PO DAILY 08/07/21 02/09/22 hydroxyzine HCl 50 mg PO PRN PRN 02/09/22 02/09/22 loratadine [Claritin] 10 mg PO DAILY 02/09/22 02/09/22 Allergies Allergy/AdvReac Type Severity Reaction Status Date / Time No Known Allergies Allergy Unknown Verified 02/09/22 13:30 Review of Systems Review of Systems: CONSTITUTIONAL: Denies fever, chills, or sweats. EYES: Denies visual changes, redness, or discharge. ENT: Reports sinus congestion, drainage, sore throat and bilateral otalgia CARDIOVASCULAR: Denies chest pain, palpitations, or edema. RESPIRATORY: Reports cough. Denies SOB. GASTROINTESTINAL: Reports nausea. Denies abdominal pain, vomiting, or diarrhea. GENITOURINARY: Denies dysuria or hematuria. SKIN: Denies rash or itching. MUSCULOSKELETAL: Denies back pain, joint pain, or myalgia. NEUROLOGIC: Denies headache, numbness, dizziness, or weakness. PSYCHIATRIC: Denies anxiety or depression. [facility] Past Medical History Medical History False labor Nausea Term Surgical History Surgical History Previous delivery, antepartum condition or complication Family History Family History Sibling FH: kidney failure Polycystic kidney disease Mother Hypertension Social History Social History Smoking status: Never smoker Substance use: never Living arrangements: with family Gender identity (if verbalized by the patient): Female Sexual Orientation (if Verbalized by the Patient): Straight or Heterosexual Spiritual care concerns: No Exam Narrative: GENERAL: Well-appearing, well-nourished, and in no acute distress. HEAD: Normocephalic, atraumatic. EYES: PERRLA and EOMI. ENT: Nares clear, no rhinorrhea or epistaxis. Mucous membranes moist. Oropharynx without tonsillar hypertrophy exudate or other lesions. Bilateral TMs pearly king nonbulging NECK: Supple. No adenopathy or masses. No carotid bruits or JVD CHEST: Clear to auscultation. No respiratory distress. No wheezes rales or rhonchi HEART: Regular rate and rhythm. No murmur heard. Normal peripheral pulses. ABDOMEN: Soft, nontender, nondistended, normal active bowel sounds. EXTREMITIES: Normal range of motion. No edema. SKIN: Warm, dry, no rash. NEURO: No focal deficits. Alert and oriented x3. PSYCH: Normal mood and affect. Course Course Emergency Course: This is a 31-year-old female who presented with complaints of respiratory symptoms. Chest x-ray consistent with pneumonia, ? viral. COVID was negative. Will cover with oral abx as it is challenging to definitively state this is a viral process. She should follow up outpatient for further evaluation and treatment and return for worsening symptoms. Pt in agreement with plan of care. Level of Care: Express Care Visit Vital Signs Vital signs: Vital Signs Temperature 36.4 C 02/09/22 13:34 Pulse Ra
== END 2022-02-09 15:06 | disposition home or self-care (01) ==
PROVIDERS: Emergency Provider Nurse Practitioner; PCP Nurse Practitioner Family
DX: J18.9 Pneumonia, unspecified organism (principal); Z20.822 Contact with and (suspected) exposure to COVID-19; Z28.311 Partially vaccinated for COVID-19
CPT/HCPCS: 71046; 87426; 99213; C9803; G0463

== ENCOUNTER 2022-02-22 12:55 | Emergency (ER) | payer BC, SELFPAY ==
--- NOTE | ~2022-02-22 | XR_ITS ---
EXAMINATION: XR chest 2V DATE: 02/22/2022 13:58 INDICATION: Cough. TECHNIQUE: Frontal and lateral views of the chest were obtained. COMPARISON: Chest 2 views 02/09/2022, CT abdomen and pelvis 03/12/2020 FINDINGS: The chest demonstrates clear lungs without pneumonia, pleural effusion, or pneumothorax. Th e heart size is normal. IMPRESSION: 1. No acute cardiopulmonary disease. Reviewed, dictated and finalized at location B.
[2022-02-22 13:05] VITALS: BP 124/82; PULSE 79; RESP 16; TEMP 36.6; O2SAT 98
--- NOTE | 2022-02-22 13:31 | ED.URI ---
HPI - URI/Sore Throat General Chief Complaint: Upper Respiratory Infection Stated Complaint: Congestion, Cough, chest pain. Time Seen by Provider: 02/22/22 13:32 Source: patient and RN notes reviewed Mode of arrival: ambulatory Limitations: no limitations History of Present Illness HPI Narrative: 31-year-old female presented for complaint of sinus pressure/ SHAH and congestion, cough, shortness of breath with exertion worsening over the past few days. Chest is tight and hurts with coughing or sneezing. She was seen in the [facility] on 02/09/2022, diagnosed with pneumonia and has taken the prescribed antibiotics. She states she did stop the amoxicillin about 6 days into it due to GI upset. She completed azithromycin and had been feeling better until the symptoms started. She took a negative home COVID test. Denies sick contacts. MD elicited complaint: cough Related Data Home Medications Medication Instructions Recorded Confirmed escitalopram oxalate 10 mg PO DAILY 08/07/21 02/22/22 loratadine [Claritin] 10 mg PO DAILY 02/09/22 02/22/22 Allergies Allergy/AdvReac Type Severity Reaction Status Date / Time No Known Allergies Allergy Unknown Verified 02/22/22 13:16 Review of Systems Review of Systems: CONSTITUTIONAL: denies malaise, chills, sweats, fever EYES: Denies visual changes, redness, or discharge ENT: Reports rhinorrhea, congestion, sinus pain, otalgia, sore throat CARDIOVASCULAR: Denies chest pain, palpitations, edema RESPIRATORY: Reports cough, post nasal drainage, BARNES GASTROINTESTINAL: Denies abdominal pain, nausea, vomiting, diarrhea SKIN: Denies rash or itching MUSCULOSKELETAL: denies myalgia NEUROLOGIC: reports headache PMFSH Past Medical History Medical History False labor Nausea Term Surgical History Surgical History Previous delivery, antepartum condition or complication Family History Family History Sibling FH: kidney failure Polycystic kidney disease Mother Hypertension Social History Social History Smoking status: Never smoker Substance use: never Gender identity (if verbalized by the patient): Female Sexual Orientation (if Verbalized by the Patient): Straight or Heterosexual Spiritual care concerns: No Exam Narrative: GENERAL: Ill-appearing, nontoxic . HEAD: Normocephalic EYES: conjunctivae clear ENT: Mucous membranes moist. TM pearly king with dull light reflex bilaterally; no tragal tenderness. Oropharynx erythematous without lesions or exudate, no drooling, no hoarseness, no trismus, uvula midline. Voice hoarse, No tripod positioning, muffled voice, soft palate or pharyngeal wall bulging NECK: Supple. No lymphadenopathy CHEST: Clear to auscultation, breath sounds equal. No wheezing, rhonchi, rales, or stridor. No respiratory distress, speaks in full sentences. HEART: Regular rate and rhythm. No murmur heard. SKIN: Warm, dry, no rash. NEURO: Alert and oriented x3. PSYCH: Normal mood and affect Course Course Emergency Course: Patient is aware of diagnosis, understands and agrees to treatment plan. Anticipatory guidance given. Patient agrees to follow-up as directed and is aware of reasons to seek care at the emergency department. Portions of this record may have been created with voice recognition software Level of Care: Express Care Visit Vital Signs Vital signs: Vital Signs Temperature 97.8 F 02/22/22 13:05 Pulse Rate 79 02/22/22 13:05 Respiratory Rate 16 02/22/22 13:05 Blood Pressure 124/82 02/22/22 13:05 Pulse Oximetry 98 02/22/22 13:05 Temperature 97.8 F 02/22/22 13:05 Pulse Rate 79 02/22/22 13:05 Respiratory Rate 16 02/22/22 13:05 Blood Pressure 124/82 02/22/22 13:05 Pulse Oxime
== END 2022-02-22 14:22 | disposition home or self-care (01) ==
PROVIDERS: Emergency Provider Nurse Practitioner Family; PCP Nurse Practitioner Family
DX: J02.0 Streptococcal pharyngitis (principal)
CPT/HCPCS: 71046; 87804; 87880; 99213; G0463

== ENCOUNTER 2022-09-18 15:08 | Emergency (ER) | payer BC, SELFPAY ==
[2022-09-18 15:17] VITALS: BP 114/74; PULSE 66; RESP 18; TEMP 36.3; O2SAT 100
--- NOTE | 2022-09-18 15:54 | ED.URI ---
HPI - URI/Sore Throat General Chief Complaint: Upper Respiratory Infection Stated Complaint: Cough,Congestion,Sore Throat Time Seen by Provider: 09/18/22 15:48 Source: patient Mode of arrival: ambulatory Limitations: no limitations History of Present Illness HPI Narrative: Patient presents today with 2 week history of cough and nasal congestion that has been waxing and waning and now include sore throat, headache, body aches over the last several days. Denies fever, shortness of breath, difficulty swallowing. She currently rates pain 05/12 and has been taking DayQuil and NyQuil with some relief. Related Data Home Medications Medication Instructions Recorded Confirmed escitalopram oxalate 10 mg tablet 10 mg PO DAILY 08/07/21 09/18/22 loratadine 10 mg tablet (Claritin) 10 mg PO DAILY 02/09/22 09/18/22 buspirone 10 mg tablet 10 mg PO DAILY 09/18/22 09/18/22 Allergies Allergy/AdvReac Type Severity Reaction Status Date / Time No Known Allergies Allergy Unknown Verified 09/18/22 15:31 Review of Systems Review of Systems: CONSTITUTIONAL: Denies fever, chills, or sweats.+ body aches EYES: Denies visual changes, redness, or discharge. ENT: Denies rhinorrhea, or otalgia.+ congestion, sore throat CARDIOVASCULAR: Denies chest pain, palpitations, or edema. RESPIRATORY: Denies dyspnea.+ cough GASTROINTESTINAL: Denies abdominal pain, nausea, vomiting, or diarrhea. GENITOURINARY: Denies dysuria or hematuria. SKIN: Denies rash, itching, or wounds. MUSCULOSKELETAL: Denies back pain, joint pain, or myalgia. NEUROLOGIC: Denies numbness, tingling, or weakness.+ headache PSYCH: Denies depression or anxiety. [facility] Past Medical History Medical History False labor Nausea Term Surgical History Surgical History Previous delivery, antepartum condition or complication Family History Family History Sibling FH: kidney failure Polycystic kidney disease Mother Hypertension Social History Social History Smoking status: Never smoker Substance use: never Gender identity (if verbalized by the patient): Female Sexual Orientation (if Verbalized by the Patient): Straight or Heterosexual Spiritual care concerns: No Comments At time of signature, I have reviewed and agree with nursing past medical, surgical, social and family history unless otherwise noted. Please see nursing chart for further information. There is no relevant family history pertinent to the presenting complaint Exam Narrative: GENERAL: Mildly ill-appearing, well-nourished, and in no acute distress. HEAD: Normocephalic, atraumatic. EYES: EOMI. No redness or drainage. Conjunctivae normal. ENT: Mucous membranes pink and moist. Nares clear. No rhinorrhea. TMs normal bilaterally. Throat mildly erythematous and edematous without exudate. Uvula midline. NECK: Normal AROM. Supple. No lymphadenopathy. CHEST: No respiratory distress. Clear to auscultation. HEART: Regular rate and rhythm. No murmur appreciated. Normal peripheral pulses. EXTREMITIES: Normal range of motion. No edema. SKIN: Warm, dry, no rash. Capillary refill normal. Normal skin turgor. NEURO: No focal deficits. Alert and oriented x3. Gait steady. PSYCH: Normal affect. No signs of depression or anxiety. Course Course Level of Care: Express Care Visit Vital Signs Vital signs: Vital Signs Temperature 97.4 F L 09/18/22 15:17 Pulse Rate 66 09/18/22 15:17 Respiratory Rate 18 09/18/22 15:17 Blood Pressure 114/74 09/18/22 15:17 Pulse Oximetry 100 09/18/22 15:17 Oxygen Delivery Room Air 09/18/22 15:17 Temperature 97.4 F L 09/18/22 15:17 Pulse Rate 66 09/18/22 15:17 Respiratory Rate 18 09/18/22 15:17
== END 2022-09-18 16:02 | disposition home or self-care (01) ==
PROVIDERS: Emergency Provider Nurse Practitioner; PCP Nurse Practitioner Family
DX: J02.0 Streptococcal pharyngitis (principal); Z20.822 Contact with and (suspected) exposure to COVID-19
CPT/HCPCS: 87426; 87804; 87880; 99213; C9803; G0463

== ENCOUNTER 2023-02-17 15:26 | Emergency (ER) | payer OTHER, SELFPAY ==
--- NOTE | ~2023-02-17 | XR_ITS ---
EXAMINATION: XR chest 2V 02/17/2023 16:01 INDICATION: Cough for 3-4 days PROCEDURE: 2 view chest COMPARISON: 02/22/2022 FINDINGS: The lungs are clear. The cardiomediastinal silhouette is within normal limits. There are no pleural effusions. There is no pneumothorax suspected. IMPRESSION: 1: NO ACUTE CARDIOPULMONARY DISEASE. Reviewed, dictated and finalized at location A.
[2023-02-17 15:38] VITALS: BP 102/69; PULSE 97; RESP 16; TEMP 36.8; O2SAT 100
[2023-02-17 15:41] VITALS: BP 102/69; PULSE 97; RESP 16; TEMP 36.8; O2SAT 100
--- NOTE | 2023-02-17 15:51 | ED.URI ---
HPI - URI/Sore Throat General Chief Complaint: Upper Respiratory Infection Stated Complaint: congestion Source: patient Mode of arrival: ambulatory Limitations: no limitations History of Present Illness HPI Narrative: 32-year-old female presents to [facility] with complaints of nonproductive cough, chest congestion and shortness of breath for the past 2 days. Patient reports that she has a history of seasonal allergies and her allergies has been acting up for the past 2 weeks. Patient takes Claritin daily for seasonal allergies. Patient's son is currently ill with similar symptoms. Patient denies wheezing, runny nose, nasal congestion, sore throat, ear pain, nausea vomiting or diarrhea. Patient also has been taking [id number] Benadryl and Mucinex with minimal relief. MD elicited complaint: other (Cough, chest congestion, shortness of breath) Pertinent past history: other (Pneumonia) Onset (ago): day(s) (2) Able to tolerate fluids by mouth: Yes Exacerbating factors: nothing Relieving factors: nothing Context: sick contacts (Son) Treatments prior to arrival: cold medicine Related Data Allergies Allergy/AdvReac Type Severity Reaction Status Date / Time No Known Allergies Allergy Unknown Verified 09/18/22 15:31 Review of Systems Constitutional: Constitutional: Denies chills, Denies fatigue, Denies fever(s) and Denies weakness ENT: Denies dizziness, Denies epistaxis, Denies nasal congestion and Denies sore throat Cardiovascular: Cardiovascular: Denies chest pain Respiratory: Respiratory: Reports cough, Reports dyspnea and Denies wheezing Comments: Chest congestion Gastrointestinal: Gastrointestinal: Denies abdominal pain, Denies diarrhea, Denies nausea and Denies vomiting Integumentary/Breasts: Skin/Breast: Denies pruritus, Denies erythema and Denies rash Neurologic: Denies dizziness, Denies syncope and Denies headache(s) [facility] Past Medical History Medical History False labor Nausea Term Surgical History Surgical History Previous delivery, antepartum condition or complication Family History Family History Sibling FH: kidney failure Polycystic kidney disease Mother Hypertension Social History Social History Smoking status: Never smoker Substance use: never Living arrangements: with family Gender identity (if verbalized by the patient): Female Sexual Orientation (if Verbalized by the Patient): Straight or Heterosexual Spiritual care concerns: No Comments At time of signature, I agree with nursing past medical, surgical, social and family history. There is no relevant family history pertinent to the presenting complaint. Exam Const: General: healthy appearing and no acute distress Nutritional Appearance: well nourished Orientation/consciousness: patient oriented x3 Limitations: no limitations HENMT: Head: normal to inspection Ears: external ears normal, TM's normal bilaterally and EAC's normal Face/Nose/Sinus: Normal external nose present Mouth: Yes moist mucous membranes Teeth and gingiva: dentition normal Throat: posterior oropharynx normal and uvula midline Other: Bilateral mild nasal congestion noted Eyes: Conjunctivae: conjunctivae normal Neck: Neck: normal visual inspection Resp: Effort & Inspection: normal respiratory effort Auscultation: clear to auscultation bilaterally, no crackles, no rales, no rhonchi, no wheezes and breath sounds present Cardio: Rate: regular rate Rhythm: regular rhythm Heart sounds: no murmurs Skin: General skin exam: normal color Rashes: no rashes Neuro: General: patient oriented x3 Psych: Affect: normal affect Attitude: cooperative Course Course Level of Care: Express Care Visit Vital Sign
== END 2023-02-17 16:22 | disposition home or self-care (01) ==
PROVIDERS: Emergency Provider Nurse Practitioner Family; PCP Nurse Practitioner Family
DX: J06.9 Acute upper respiratory infection, unspecified (principal)
CPT/HCPCS: 71046; 99213; G0463

== ENCOUNTER 2023-09-11 14:29 | Emergency (ER) | payer OTHER, SELFPAY ==
[2023-09-11 14:37] VITALS: BP 119/71; PULSE 100; RESP 18; TEMP 38.3; O2SAT 96
--- NOTE | 2023-09-11 14:52 | ED.URI ---
HPI - URI/Sore Throat General Chief Complaint: Upper Respiratory Infection Stated Complaint: Headache,Congestion Time Seen by Provider: 09/11/23 14:50 Source: patient, family, RN notes reviewed and old records reviewed Mode of arrival: ambulatory Limitations: no limitations History of Present Illness HPI Narrative: 33-year-old female who presents to [facility] with complaints of fever with tmax 103F, headache,productive cough, sinus congestion, chills for the past 3 days. Patient reports that she has been taking DayQuil,NyQuil and also Mucinex for her symptoms.Patient denies any sore throat or any discomfort when swallowing, has decreased appetite but is drinking fluids well. Patient reports that she did home COVID this morning which was negative. MD elicited complaint: fever, cough and other (headache) Onset (ago): day(s) (3) Pain scale (0-10): 7 Able to tolerate fluids by mouth: Yes Treatments prior to arrival: other (DayQuil,NyQuil and Mucinex) Related Data Allergies Allergy/AdvReac Type Severity Reaction Status Date / Time No Known Allergies Allergy Unknown Verified 09/11/23 14:43 Review of Systems Review of Systems: CONSTITUTIONAL: Reports malaise, chills, sweats, or fever. EYES: Denies visual changes, redness, or discharge. ENT: Reports rhinorrhea, congestion, sinus pain, no otalgia and no sore throat. CARDIOVASCULAR: Denies chest pain, palpitations, or edema. RESPIRATORY: Reports cough.? Denies dyspnea. GASTROINTESTINAL: Denies abdominal pain, nausea, vomiting, diarrhea SKIN: Denies rash or itching. MUSCULOSKELETAL: Reports myalgia. NEUROLOGIC: Reports headache. All systems reviewed & are unremarkable except as noted in HPI and below PMFSH Past Medical History Medical History False labor Nausea Term Surgical History Surgical History Previous delivery, antepartum condition or complication x2 Family History Family History Sibling FH: kidney failure Polycystic kidney disease Mother Hypertension Social History Social History Smoking status: Never smoker Substance use: never Living arrangements: with family Gender identity (if verbalized by the patient): Female Sexual Orientation (if Verbalized by the Patient): Straight or Heterosexual Spiritual care concerns: No Comments At time of signature, agree with nursing past medical, surgical, social and family history. There is no relevant family history pertinent to the presenting complaint Exam Narrative: GENERAL: Well-appearing, well-nourished, and in no acute distress. HEAD: Normocephalic EYES: PERRLA, conjunctivae clear ENT: Nares clear, turbinates edematous and erythematous, clear discharge. Mucous membranes moist. TM pearly king with dull light reflex bilaterally; no tragal tenderness. Oropharynx erythematous without lesions. Tonsils not enlarged and without exudate, no drooling, no hoarseness, no trismus, uvula midline. NECK: Supple. No lymphadenopathy CHEST: Clear to auscultation, breath sounds equal. No wheezing, rhonchi, rales, or stridor. No respiratory distress, speaks in full sentences.cough noted SAO2 96%on room air HEART: Regular rate and rhythm. No murmur heard. SKIN: Warm, dry, no rash. NEURO: Alert and oriented x3. PSYCH: Normal mood and affect Course Course Emergency Course: Patient is aware of diagnosis, understands and agrees to treatment plan.? Anticipatory guidance given.? Patient agrees to follow-up as directed and is aware of reasons to seek care at the emergency department. Portions of this record may have been created with voice recognition software Level of Care: Express Care Visit Vital Signs Vital signs: Vital Signs Oxygen Deli
== END 2023-09-11 15:26 | disposition home or self-care (01) ==
PROVIDERS: Emergency Provider Registered Nurse; PCP Nurse Practitioner Family
DX: R05.9 Cough, unspecified (principal); J06.9 Acute upper respiratory infection, unspecified; Z20.822 Contact with and (suspected) exposure to COVID-19
CPT/HCPCS: 87426; 87804; 99213; C9803; G0463

== ENCOUNTER 2025-02-14 12:23 | Emergency (ER) | payer BC, SELFPAY ==
[2025-02-14 12:36] VITALS: BP 121/85; PULSE 84; RESP 18; TEMP 37.4; O2SAT 99
[2025-02-14 12:54] LABS: EDSTREPNEGPOS1 Positive (Negative)
--- NOTE | 2025-02-14 12:54 | ED_ITS ---
HPI - URI/Sore Throat General Chief Complaint: Upper Respiratory Infection Stated Complaint: URI History of Present Illness HPI Narrative: 34-year-old female presented for complaint of a sore throat, headache, subjective fever, and nausea. Onset 3 days. Endorses symptoms are 'tremendo us.' Has not taken anything for symptoms. Denies sob, wheezing, vomiting, diarrhea or lethargy. Related Data Allergies Allergy/AdvReac Type Severity Reaction Status Date / Time No Known Allergies Allergy Unknown Verified 02/14/25 12:41 Review of Systems Review of Systems: CONSTITUTIONAL: reports body aches, fever, chills, sweats. EYES: Denies visual changes, redness, or discharge. ENT: Reports sore throat Denies rhinorrhea, congestion, or otalgia. CARDIOVASCULAR: Denies chest pain, palpitations, or edema. RESPIRATORY: Denies dyspnea. GASTROINTESTINAL: reports nausea Denies abdominal pain, vomiting, or diarrhea. SKIN: Denies rash NEUROLOGIC: reports headache PMFSH Past Medical History Medical History False labor Nausea Term Surgical History Surgical History Previous delivery, antepartum condition or complication x2 Family History Family History Sibling FH: kidney failure Polycystic kidney disease Mother Hypertension Social History Social History Smoking status: Never smoker Substance use: never Living arrangements: with family Gender identity (if verbalized by the patient): Female Sexual Orientation (if Verbalized by the Patient): Straight or Heterosexual Spiritual care concerns: No Exam Narrative: GENERAL: Ill-appearing, no acute distress. EYES: conjunctivae clear ENT: Mucous membranes moist. TM pearly king with normal light reflex bilaterally; no tragal tenderness. Oropharynx erythematous without lesions. Tonsils not enlarged and without exudate. No drooling, no hoarseness, no trismus, uvula midline. No tripod positioning, hot potato voice, or soft palate swelling. NECK: Supple. bilateral anterior cervical lymphadenopathy CHEST: Clear to auscultation, breath sounds equal. No respiratory distress, speaks in full sentences. HEART: Regular rate and rhythm. No murmur heard. SKIN: Warm, dry, no rash. NEURO: Alert and oriented x3. Course Course Emergency Course: Patient is aware of diagnosis, understands and agrees to treatment plan. Anticipatory guidance given. Patient agrees to follow-up as directed and is aw are of reasons to seek care at the emergency department. Portions of this record may have been created with voice recognition software Level of Care: Express Care Visit Vital Signs Vital signs: Vital Signs Temperature 99.3 F 02/14/25 12:36 Pulse Rate 84 02/14/25 12:36 Respiratory Rate 18 02/14/25 12:36 Blood Pressure 121/85 02/14/25 12:36 Pulse Oximetry 99 02/14/25 12:36 Oxygen Delivery Room Air 02/14/25 12:36 Temperature 99.3 F 02/14/25 12:36 Pulse Rate 84 02/14/25 12:36 Respiratory Rate 18 02/14/25 12:36 Blood Pressure 121/85 02/14/25 12:36 Pulse Oximetry 99 02/14/25 12:36 Oxygen Delivery Room Air 02/14/25 12:36 MDM - URI/Sore Throat MDM Narrative Medical decision making narrative: POS strep result reviewed with pt. Advise supportive treatments. Patient is appropriate for outpatient treatment and follow-up. Differential Diagnosis Differential diagnosis: Likely upper respiratory infection, viral infection and pharyngitis Lab Data Labs: Lab Results 02/14/25 Range/Units 12:51 POC Grp A Strep Screen Positive (Negative) Discharge Plan Discharge Clinical Impression: Strep pharyngitis Patient Disposition: Home Condition: Stable Instructions: Antibiotic Form, Strep Throat (ED) Additional Instructions: - Take the antibiotic as directed. Fever and sore throat typically resolve within one to three days. Most patients can return to work, school, or daycare after 12 to 24 hours of antibiotic therapy, provided you are fever free and otherwise well. -Eat and drink things that are easy to swallow, like soft foods, cool liquids, tea with honey, or popsicles . -Salt water gargles and/or may use topical anesthetic ( Chloraseptic spray) or lozenges to relieve dryness or throat pain -Alternate Tylenol and ibuprofen as needed for pain and fever as directed. -Frequent hand washing or hand client application support specialist is one of the best ways to prevent spread of infection. Throw away the toothbrush after 24hours of antibiotic. -Follow up with primary care provider in 2-3 days if condition is not improving -Go to the ER if you have trouble breathing, cannot drink enough fluids, have muffled voice or drooling, difficulty opening your mouth, or severe swelling. Patient Language: Syriac Prescriptions: New amoxicillin 500 mg tablet 1,000 mg PO DAILY 10 Days Qty: 20 0RF Follow-up/Referrals: Ines Delarosa APRN [Primary Care Provider] -
[2025-02-14 13:00] LABS: EDCOVIDSCREEN Negative (Negative); EDINFLUASCREEN Negative (Negative); EDINFLUBSCREEN Negative (Negative)
== END 2025-02-14 13:15 | disposition home or self-care (01) ==
PROVIDERS: Emergency Provider Nurse Practitioner Family; PCP Nurse Practitioner Family
DX: J02.0 Streptococcal pharyngitis (principal); Z20.822 Contact with and (suspected) exposure to COVID-19
CPT/HCPCS: 87426; 87804; 87880; 99213; G0463